=== PATIENT | male | born 2000 | race Hispanic/Latino ===

== ENCOUNTER 2023-02-20 01:12 | Emergency (ER) | payer OTHER ==
[~2023-02-20] VITALS: Ht 175.3 cm; Wt 86.6 kg
[2023-02-20 02:32] LABS: APPEARANCE,URINE CLEAR (CLEAR); BILIRUBIN,URINE NEGATIVE (NEGATIVE); COLOR,URINE COLORLESS (YELLOW); GLUCOSE, URINE (UA) NEGATIVE (NEGATIVE); KETONES,URINE NEGATIVE (NEGATIVE); LEUKOCYTE ESTERASE ,URINE NEGATIVE Leu/uL (NEGATIVE); NITRATE,URINE NEGATIVE (NEGATIVE); OCCULT BLOOD,URINE NEGATIVE (NEGATIVE); PROTEIN,URINE NEGATIVE (NEGATIVE); UROBILINOGEN,URINE 0.2 mg/dL (0.2-1.0)
[2023-02-20 02:39] LABS: POTASSIUM 4.1 mmol/L (3.5-5.1)
[2023-02-20 02:43] LABS: ALBUMIN 4.4 g/dL (3.5-5.0)
[2023-02-20 03:05] LABS: BASOPHILS % (AUTO) 0.9 % (0.0-5.0); HEMATOCRIT 45.1 % (42-54); MEAN CORPUSCULAR HGB CONC 34.1 g/dL (32.0-36.0); MEAN CORPUSCULAR VOLUME 90.9 fL (79-99); MONOCYTES % (AUTO) 7.5 % (3.0-13.0); NEUTROPHILS % (AUTO) 61.6 % (40.0-77.0); PLATELET COUNT (AUTO) 313 K/uL (130-400); RED BLOOD CELL COUNT(AUTO) 4.96 MIL/uL (4.50-6.20); RED CELL DISTRIBUTION WIDTH 12.5 % (11.0-15.5); WHITE BLOOD COUNT (AUTO) 8.2 K/uL (4.8-10.8)
[2023-02-20 03:52] VITALS: BP 110/76
== END 2023-02-20 03:56 | disposition home or self-care (01) ==
LOC: EDH 01:12
DX: R00.2 Palpitations (principal)
CPT/HCPCS: 36415; 71045; 80053; 81003; 83735; 85025; 93005